=== PATIENT | female | born 1955 | race African-American/Black ===

== ENCOUNTER → 2017-04-26 | Outpatient (CLI) | payer BC ==
--- NOTE | 2017-04-27 09:49 | CT ---
HISTORY: Asthma, hypertension, inflammation of the lungs Study: CT chest without contrast Comparison: None Technique: Multiple axial images of the chest were obtained from the thoracic inlet to the upper abdo men without the administration of IV contrast. Supine and prone images were obtained utilizing high-r esolution protocol. Dose reduction techniques including automated exposure control (AEC) and adjustme nt of mA kV were utilized. Findings: Scattered sub cm lymph nodes are seen within the mediastinum. Evaluation of the mediastinum, hilar re gions, and vascular structures is limited without IV contrast. Atherosclerotic changes are seen withi n the visualized coronary arteries and aorta. There is no pericardial effusion observed. Mild bronc hiectasis is seen within knee bilateral perihilar and bibasilar distribution bilaterally. Otherwise n o CT evidence of focal consolidation, pneumothorax, or pleural effusion is identified. A small hiatal hernia is noted. IMPRESSION: Mild bronchiectasis as noted above. Small hiatal hernia. Reported By:
== END ==
LOC: RAD 11:22
PROVIDERS: ATTEND Internal Medicine Pulmonary Disease
DX: J69.0 Pneumonitis due to inhalation of food and vomit (principal); R91.8 Other nonspecific abnormal finding of lung field; J47.9 Bronchiectasis, uncomplicated; K44.9 Diaphragmatic hernia without obstruction or gangrene
CPT/HCPCS: 71250